=== PATIENT | male | born 1990 | race Two or more races ===

== ENCOUNTER 2017-06-09 16:24 | Emergency (ER) | payer SELFPAY ==
[~2017-06-09] VITALS: Ht 167.6 cm; Wt 68.0 kg
--- NOTE | 2017-06-09 17:22 | NUR ---
PT TO ED ROOM 10: nausea, vomiting, and diarrhea x 3 days. A/A/O, AMBULATORY WITH STEADY GAIT. SIDE RAILS UP, HOB ELEVATED. AWAITING EVALUATION BY ER PROVIDER.
[2017-06-09] MEDS ORDERED: predniSONE 20 MG TABLET ONE (17:39)
--- NOTE | 2017-06-09 17:43 | NUR ---
RT CALLED FOR BT
[2017-06-09] MEDS ORDERED: IPRATROPIUM NEB FS 0.5 MG/2.5 ML AMPUL.NEB ONE (17:46)
[2017-06-09] MEDS ORDERED: ALBUTEROL FS 2.5 MG/3 ML VIAL.NEB ONE (17:46)
[2017-06-09 17:48] LABS: BASOPHILS # (AUTO) 0.1 /CMM (0.0-0.2); BASOPHILS % (AUTO) 0.7 % (0.0-2.0); EOSINOPHILS % (AUTO) 0.2 % (0.0-6.0); HEMATOCRIT 46 % (39-51); HEMOGLOBIN 16.2 g/dL (13.5-17.5); LYMPHOCYTES # (AUTO) 0.6 /CMM (0.8-4.8); LYMPHOCYTES % (AUTO) 7.7 % (20.0-44.0); MEAN CORPUSCULAR HGB CONC 36 g/dl (31.0-36.0); MEAN CORPUSCULAR VOLUME 89 fL (80-96); MONOCYTES # (AUTO) 0.3 /CMM (0.1-1.30); MONOCYTES % (AUTO) 4.4 % (2.0-12.0); NEUTROPHILS # (AUTO) 6.2 /CMM (1.8-8.9); PLATELET COUNT (AUTO) 105 /CMM (150-450); RED BLOOD CELL COUNT(AUTO) 5.13 MIL/uL (4.5-6.0); WHITE BLOOD COUNT (AUTO) 7.2 K/uL (4.3-11.0)
[2017-06-09 17:49] LABS: APPEARANCE,URINE Clear (CLEAR); BILIRUBIN,URINE Negative (NEGATIVE); BLOOD, URINE Trace-intact Ery/uL (NEGATIVE); COLOR,URINE Yellow (YELLOW); KETONES,URINE 15 (NEGATIVE); LEUKOCYTE ESTERASE ,URINE Negative (NEGATIVE); NITRITE, URINE Negative (NEGATIVE); PH,URINE 6.5 (5.0-8.0); PROTEIN,URINE Negative (NEGATIVE); UGLUCOSE Negative (NEGATIVE); UROBILINOGEN,URINE 0.2 EU/dL (0.2)
[2017-06-09] MEDS ORDERED: predniSONE 20 MG TABLET PO ONE (18:00)
[2017-06-09] MEDS ORDERED: IPRATROPIUM NEB FS 0.5 MG/2.5 ML AMPUL.NEB NEB ONE (18:00)
[2017-06-09] MEDS ORDERED: ALBUTEROL FS 2.5 MG/3 ML VIAL.NEB NEB ONE (18:00)
[2017-06-09 18:05] LABS: CALCIUM, SERUM 10.3 mg/dL (8.5-10.1); CREATININE 0.9 mg/dL (0.6-1.3)
[2017-06-09 18:09] LABS: INR 0.96 (0.85-1.15)
[2017-06-09 18:11] LABS: ALBUMIN 5.1 g/dL (3.4-5.0); BILIRUBIN,DIRECT 0.2 mg/dL (0.0-0.2); BILIRUBIN,TOTAL 0.7 mg/dL (0.2-1.0); TOTAL PROTEIN, SERUM 8.9 g/dL (6.4-8.2)
[2017-06-09 18:33] LABS: BACTERIA,URINE None seen /HPF (None Seen); RBC,URINE 0-2 /HPF (0-2); SQUAMOUS EPITHELIAL CELL,UR None Seen /HPF (None Seen); WBC,URINE NONE SEEN /HPF (0-3)
--- NOTE | 2017-06-09 19:46 | NUR ---
Patient discharged to home in stable condition. Written and verbal after care instructions given. Patient verbalizes understanding of instruction. ambulatory with a steady gait. NO N/V/D noted.
[2017-06-09 19:48] VITALS: BP 132/86
== END 2017-06-09 19:49 | disposition home or self-care (01) ==
LOC: ER 16:28
DX: J98.01 Acute bronchospasm (principal); A08.4 Viral intestinal infection, unspecified; F10.10 Alcohol abuse, uncomplicated; F17.200 Nicotine dependence, unspecified, uncomplicated; F12.10 Cannabis abuse, uncomplicated
CPT/HCPCS: 36415; 71045; 80048; 80076; 81001; 83690; 85025; 85730; 94640; 99285; A4606; J7512; Z7610; 81000-TC